=== PATIENT | male | born 1935 | race Hispanic/Latino ===

== ENCOUNTER 2018-09-08 12:53 | Outpatient (RCR) | payer MEDICARE, OTHER | END 2018-09-11 | LOC: PT 12:53 | PROVIDERS: ATTEND Specialist | DX: S46.022A Laceration of muscle(s) and tendon(s) of the rotator cuff of left shoulder, initial encounter (principal); M75.42 Impingement syndrome of left shoulder; M25.512 Pain in left shoulder ==

== ENCOUNTER 2018-10-02 13:00 | Outpatient (RCR) | payer MEDICARE, OTHER | END 2018-10-12 | LOC: PT 13:00 | PROVIDERS: ATTEND Specialist | DX: S46.022A Laceration of muscle(s) and tendon(s) of the rotator cuff of left shoulder, initial encounter (principal); M25.512 Pain in left shoulder; M75.42 Impingement syndrome of left shoulder | CPT/HCPCS: 97139 ==